=== PATIENT | female | born 1985 | race Two or more races ===

== ENCOUNTER 2024-03-28 14:47 | Outpatient (AMB) | payer OTHER, SELFPAY ==
--- NOTE | 2024-03-28 14:50 | A.OFFPC_ITS ---
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 It has been over 10 years since she had a primary care provider. 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 The patient was seen at [facility] on 02/01/2024 for left flank pain. She was diagnosed with a 4 mm left renal stone. She was discharged, and she believes it past because her pain resolved. She denies hematuria. No prior episodes. She had asthma diagnosed in childhood. She only has symptoms now if she is around cats. She does not have a rescue inhaler. She smokes 2-3 packs of cigarettes per week. She is not sedentary. She is considered quitting, but she does not want to take medications because she is concerned about the side effects. She is thinking about using patches, but she is not prepared to do this yet. Denies family history of breast cancer and colon cancer. ROS: Constitutional: No unexplained weight loss, fever, chills, fatigue or night sweats. Respiratory: No shortness of breath, cough or sputum production. Genitourinary: No dysuria, hematuria, urinary frequency. Psychiatric: No depression or anxiety. No SI/HI. Physical exam: Respiratory: Clear to auscultation. Cardiovascular: S1 S2 regular. No murmurs Psychiatric: Normal mood and affect [facility] Medical History (Updated 03/28/24 @ 15:44 by DORCAS Barr) Mild intermittent asthma Screening for cardiovascular condition Kidney stones Asthma Surgical History No pertinent past surgical history Family History Mother Substance abuse Cancer Hypertension High cholesterol Social History (Updated 03/28/24 @ 14:55 by Sheldon Jain MA) Household Members: Other Household Members Other:: roomates Both parents involved: No Caregiver staying overnight: No Housing: House Are you a primary transitional care manager to a significant other at home: No Do you presently have visiting nurse or other home services: No 75 years or older and lives alone: No Alcohol intake: never Patient Tobacco Use Status: Current everyday Tobacco user Cigarettes Per Day: 7 Years Smoked: 20 e-Cigarette/Vaping Use: Never Used Second Hand Smoke Exposure: No service: No Current occupational status: employed 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 1. Little interest or pleasure in doing things: not at all 2. Feeling down, depressed, or hopeless: not at all 3. Trouble falling or staying asleep, or sleeping too much: not at all 4. Feeling tired or having little energy: not at all 5. Poor appetite or overeating: not at all 6. Feeling bad about yourself - or that you are a failure or have let yourself or your family down: not at all 7. Trouble concentrating on things, such as reading the newspaper or watching television: not at all 8. Moving or speaking so slowly that other people could have noticed. Or the opposite - being so fidgety or restless that you have been moving around a lot more than usual: not at all 9. Thoughts that you would be better off or of hurting yourself in some way: not at all Total score: 0 07479 - PHQ-9 Billing: Yes Source: Developed by Drs. Chucky Morales, Elke Ledbetter, Catalino William and colleagues, with an educational jason from [employer] Thrive Questionnaire Date Thrive assessed: 03/28/24 I am a: Patient What is your living situation today?: I have a steady place to live Within the past 12 months, did the food you bought not last and you didn't have the money to get more?: Sometimes True Within the past 12 months, did you worry whether your food would run out before you got money to buy more?: Sometimes True Do you have trouble paying for medicines?: No Do you have trouble getting transportation to medical appointments?: No Do you have trouble paying your heating and electricity bill?: No Do you have trouble taking care of your child, family member or friend?: No Do you have trouble with day-to-day activities such as bathing, preparing meals, shopping, managing finances, etc.?: No Are you currently unemployed and looking for a job?: No Are you interested in more education?: Yes Please select the resources that you would like help with: Food and Utilities Currently or been in a relationship where the following occur: No concerns reported THRIVE Score: 2 AUDIT C Alcohol Use Questionnaire (AUDIT-C) 1. How often do you have a drink containing alcohol?: Never 3. How often do you have six or more drinks on one occasion?: Never Total Score: 0 JAC-7 AMB Questionnaire JAC-7 Date JAC - 7 assessed: 03/28/24 Feeling nervous, anxious, or on edge: 0 = Not at all Not being able to stop or control worryin = Not at all Worrying too much about different things: 0 = Not at all Trouble relaxin = Not at all Being so restless that it is hard to sit still: 0 = Not at all Becoming easily annoyed or irritable: 0 = Not at all Feeling afraid as if something awful might happen: 0 = Not at all Total JAC-7 score (0-4 normal; 5-9 mild; 10-14 moderate; 15-21 severe): 0 Source: Developed by Drs. Chucky Morales, Elke Ledbetter, Catalino William and colleagues, with an educational jason from [employer]. JAC-7 Assessment Billing JAC-7 Assessment Tool: JAC-7 Assessment 57050 Physical exam (Primary Care) Vital Signs: Last Vital Signs Pulse 75 03/28/24 14:58 Resp 12 03/28/24 14:58 BP 115/66 03/28/24 14:58 Pulse Ox 98 03/28/24 14:58 Oxygen Delivery Method Room Air 03/28/24 14:58 BMI result Body Mass Index 25.6 Tobacco/Smoking Status: Tobacco use Status Tobacco use date assessed 03/28/24 03/28/24 14:59 Patient Tobacco Use Status Current everyday Tobacco 03/28/24 14:59 e-Cigarette/Vaping Use Never Used 03/28/24 14:59 PHQ-9: PHQ-9 Score PHQ-9: Total score 0 03/28/24 14:59 Thrive Assessment: Date of Thrive Assessment Date Thrive assessed 03/28/24 03/28/24 14:59 Currently or been in a relationship where the following occur: No concerns reported Coding Level of Care Code New Pt Level 4 (66118) Complex EM visit Add On G2211 Diagnoses Kidney stones N20.0 Screening for cardiovascular condition Z13.6 Mild intermittent asthma J45.20 Additional Codes JAC-7 Assessment Billing - JAC-7 Assessment Tool: JAC-7 Assessment 75102 ([id number]) PHQ-9 - 56863 - PHQ-9 Billing: Yes ([id number]) Assessment & Plan Assessment & Plan (1) Kidney stones: Code(s): N20.0 - Calculus of kidney Category: Medical Plan: Stay well hydrated. We will check an ultrasound, and if there are any stone she will be referred to Urology. (2) Screening for cardiovascular condition: Code(s): Z13.6 - Encounter for screening for cardiovascular disorders Category: Medical (3) Mild intermittent asthma: Code(s): J45.20 - Mild intermittent asthma, uncomplicated Category: Medical Plan: Albuterol 2 puffs every 4 hours as needed for coughing, wheezing or shortness of breath. Recommended taking this 15 minutes prior to exposure to cats and to take Claritin or Radha at least 2 hours before exposure. Plan She will return for fasting labs. Agreeable to screening for STIs including HIV testing. She will return for a physical exam. Referred to Gynecology for annual exam. Influenza and Tdap vaccine given today. Orders: Orders Lipid Panel Today E78.5 - Hyperlipidemia, unspecified, N20.0 - Calculus of kidney, Z13.6 - Encounter for screening for cardiovascular disorders Hepatitis C Antibody Today N20.0 - Calculus of kidney, Z13.6 - Encounter for screening for cardiovascular disorders, Z20.2 - Contact with and (suspected) exposure to infections with a predominantly sexual mode of transmission Syphilis Screen Today N20.0 - Calculus of kidney, Z13.6 - Encounter for screening for cardiovascular disorders, Z20.2 - Contact with and (suspected) exposure to infections with a predominantly sexual mode of transmission Influenza [id number] Immunization Today Z23 - Encounter for immunization Comprehensive Met. Panel Today N20.0 - Calculus of kidney, Z13.6 - Encounter for screening for cardiovascular disorders HIV Ab/Ag Today N20.0 - Calculus of kidney, Z13.6 - Encounter for screening for cardiovascular disorders, Z20.2 - Contact with and (suspected) exposure to infections with a predominantly sexual mode of transmission CT NG by PCR Today N20.0 - Calculus of kidney, Z13.6 - Encounter for screening for cardiovascular disorders, Z20.2 - Contact with and (suspected) exposure to infections with a predominantly sexual mode of transmission TDaP Immunization Today Z23 - Encounter for immunization US retroperitoneal comp Today N20.0 - Calculus of kidney Referrals RELEASE AND TECHNICAL RECORDS CLERK Referral Z01.419 - Encounter for gynecological examination (general) (routine) without abnormal findings Medications: New Boostrix Tdap (diphth,pertus(acell),tetanus) 0.5 mL IM ONCE 0.5 mL 0RF NS Z23 - Encounter for immunization albuterol sulfate 90 mcg/actuation (Ventolin HFA) 2 puffs inhalation Q4-6H PRN 8.5 grams 0RF shortness of breath or wheezing Fluarix Triv [id number] (PF) (flu vacc [id number] 6mos up(PF)) 0.5 mL IM ONCE 0.5 mL 0RF NS Z23 - Encounter for immunization
[2024-03-28 14:58] VITALS: BP 115/66; PULSE 75; RESP 12; O2SAT 98; BMI 25.6
== END 2024-03-28 15:49 | disposition home or self-care (01) ==
PROVIDERS: PCP Physician Assistant Medical; Visit Provider Physician Assistant Medical
DX: N20.0 Calculus of kidney (principal); Z13.6 Encounter for screening for cardiovascular disorders; J45.20 Mild intermittent asthma, uncomplicated; Z23 Encounter for immunization

== ENCOUNTER → 2024-03-28 14:47 | Outpatient (BNVA) | payer OTHER, SELFPAY | PROVIDERS: PCP Physician Assistant Medical; Visit Provider Physician Assistant Medical | DX: N20.0 Calculus of kidney (principal); J45.20 Mild intermittent asthma, uncomplicated; F17.210 Nicotine dependence, cigarettes, uncomplicated; Z23 Encounter for immunization | CPT/HCPCS: 90471; 90472; 90656; 90715; 96127 ==

== ENCOUNTER 2024-05-07 08:52 | Outpatient (REF) | payer OTHER, SELFPAY ==
[2024-05-07 12:11] LABS: Alanine Aminotransferase 28 U/L (0-31); Albumin Level 4.4 g/dL (3.5-5.0); Alkaline Phosphatase 71 U/L (39-117); Anion Gap 16 (12-20); Aspartate Amino Transferase 24 U/L (5-31); Bilirubin Total 0.6 mg/dL (0.0-1.0); Blood Urea Nitrogen 11 mg/dL (9-16); Calcium 9.1 mg/dL (8.4-10.2); Carbon Dioxide 24 mmol/L (22-29); Chloride 104 mmol/L (96-108); Cholesterol 214 mg/dL (<200); Estimated Glomerular Filt Rate > 60; Glucose Random 93 mg/dL (60-115); HDL Cholesterol 67 mg/dL (>40); LDL Cholesterol Calculated 123 mg/dL (<100); Potassium 3.7 mmol/L (3.3-5.1); Sodium 140 mmol/L (135-145); Total Protein 7.4 g/dL (6.5-8.0); Triglycerides 123 mg/dL (<150)
[2024-05-07 12:14] LABS: HIV AB/AG Nonreactive (Nonreactive); HIV Num 1 0.05 S/CO (0.00-0.99); Syphilis Screen Nonreactive (Nonreactive); ~HepC Num1 0.13 S/CO (0.00-0.79); ~Hepatitis C Antibody Nonreactive (Nonreactive)
== END 2024-05-07 08:53 | disposition home or self-care (01) ==
LOC: HO.WFDLDS 08:52
PROVIDERS: Visit Provider Physician Assistant Medical
DX: N20.0 Calculus of kidney (principal); E78.5 Hyperlipidemia, unspecified; Z13.6 Encounter for screening for cardiovascular disorders; Z20.2 Contact with and (suspected) exposure to infections with a predominantly sexual mode of transmission
CPT/HCPCS: 36415; 80053; 80061; 86780; 86803; 87389

== ENCOUNTER 2024-05-23 11:51 | Outpatient (AMB) | payer OTHER, SELFPAY ==
--- NOTE | 2024-05-23 11:55 | A.OFFPC_ITS ---
Vital Signs 05/23/24 11:57 Height 5 ft 2 in Weight 143 lb 4 oz BMI 26.2 BP 115/68 Blood Pressure Location Lt brachial Position Sitting Respiration 12 Pulse 71 Pulse Source Pulse Oximeter Temp 97.1 F Temp Source Oral Pulse Oximetry (%) 98 Oxygen Delivery Method Room Air Intake Visit Reasons: annual physical exam Intake Note: annual physical Billing Checker Required: No Allergies No Known Allergies Allergy (Verified 05/23/24 11:56) Tobacco use date assessed: 05/23/24 Dental Screening Dental Screen Date: 05/23/24 Did you have a dental visit in the last 12 months?: Yes Did you have a dental problem in the last 6 months where you did not have access to dental care?: No Was dental information given to patient?: Patient has dentist HPI HPI Comments History of Present Illness Details This is a 39-year-old female presenting for a physical exam. 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 She received the flu vaccine and Tdap vaccine at her most recent visit. We discussed it pneumonia vaccine and rabies vaccine due to her line of work and history of asthma. She is going to check with her insurance about coverage. The patient was seen at [facility] on 02/01/2024 for left flank pain. She was diagnosed with a 4 mm left renal stone. She was discharged, and when she saw me her symptoms resolved, and the stone was believed to have pas sed. Renal function tests on 05/07/2024 were normal. She had an ultrasound done at [facility] on 04/17/2024 which showed 2 tiny bright reflectors at the left UVJ suspicious for nonobstructing calculi. She denies flank pain, urinary frequency, hematuria, fevers or chills. We reviewed her additional lab tests that were normal on 05/07/2024. She had asthma diagnosed in childhood. She only has symptoms now if she is around cats. She has a prescription for a rescue inhaler. She smokes 2-3 packs of cigarettes per week. She is not sedentary. She is considered quitting, but she does not want to take medications because she is concerned about the side effects. She is thinking about using patches, but she is not prepared to do this yet. Denies family history of breast cancer and colon cancer. Her mother has skin cancer. She is referred to Dermatology for a skin exam. She sees NAVAL ENGINEER for her annual this Monday. She endorses a history of eczema. Currently has a patch on her left ear and right elbow. She is using [id number] emollient which is not clearing the flare. ROS: Constitutional: No unexplained weight loss, fever, chills, fatigue or night sweats. Eyes: No vision changes, blurry vision, double vision, eye pain, eye redness, eye discharge. ENT: No hearing loss, sneezing, congestion, runny nose or sore throat. Respiratory: No shortness of breath, cough or sputum production. Cardiovascular: No chest pain, chest pressure or chest discomfort. No palpitations or pedal edema. Gastrointestinal: No anorexia, nausea, vomiting or diarrhea. No abdominal pain or blood in stool. Genitourinary: No dysuria, hematuria, urinary frequency. Neurologic: No headache, dizziness, syncope, unilateral weakness, ataxia, numbness or tingling in the extremities. Musculoskeletal: No muscle pain, back pain, joint pain or swelling. Hematologic/Lymphatics: No bleeding or bruising. No painful lymph nodes. Skin: see HPI Endocrine: No cold or heat intolerance. No polyuria or polydipsia. Psychiatric: No depression or anxiety. No SI/HI. Physical exam: Constitutional: Alert, in no distress. Head: Normocephalic. Eyes: Pupils are equal, round and reactive to light. Extraocular muscles intact. Ear, Nose and Throat: Canals clear. TMs normal. Normal nasal mucosa. No nasal discharge. No oral lesions. Neck: Supple, Full range of motion. No lymphadenopathy. No palpable thyroid masses. Respiratory: Clear to auscultation. Cardiovascular: S1 S2 regular. No murmurs. No carotid bruits. Gastrointestinal: Abdomen soft, non-tender, non-distended. Normal bowel sounds. No palpable masses. Genitourinary: No costovertebral angle tenderness. Neurologic: No focal neurological deficits. Symmetric patellar reflexes. Moves all extremities spontaneously. Sensation intact bilaterally. Skin: Erythematous dry patch on and behind the left ear and on the right elbow. Musculoskeletal: No gross deformities. Normal range of motion. Extremities: Warm and well perfused. No clubbing, cyanosis or edema. 3+ peripheral pulses bilaterally. Psychiatric: Normal mood and affect [facility] Medical History (Updated 05/24/24 @ 08:41 by DORCAS Barr) Eczema Routine physical examination Mild intermittent asthma Screening for cardiovascular condition Kidney stones Asthma Surgical History No pertinent past surgical history Family History Mother Substance abuse Cancer Hypertension High cholesterol Social History (Updated 03/28/24 @ 14:55 by Sheldon Jain MA) Household Members: Other Household Members Other:: roomates Both parents involved: No Caregiver staying overnight: No Housing: House Are you a primary intensive care unit nurse to a significant other at home: No Do you presently have visiting nurse or other home services: No 75 years or older and lives alone: No Alcohol intake: never Patient Tobacco Use Status: Current everyday Tobacco user Cigarettes Per Day: 7 Years Smoked: 20 e-Cigarette/Vaping Use: Never Used Second Hand Smoke Exposure: No service: No Current occupational status: employed 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 1. Little interest or pleasure in doing things: not at all 2. Feeling down, depressed, or hopeless: not at all 3. Trouble falling or staying asleep, or sleeping too much: not at all 4. Feeling tired or having little energy: not at all 5. Poor appetite or overeating: not at all 6. Feeling bad about yourself - or that you are a failure or have let yourself or your family down: not at all 7. Trouble concentrating on things, such as reading the newspaper or watching television: not at all 8. Moving or speaking so slowly that other people could have noticed. Or the opposite - being so fidgety or restless that you have been moving around a lot more than usual: not at all 9. Thoughts that you would be better off or of hurting yourself in some way: not at all Total score: 0 69237 - PHQ-9 Billing: Yes Source: Developed by Drs. Chucky Morales, Elke Ledbetter, Catalino William and colleagues, with an educational jason from [employer]. Thrive Questionnaire Date Thrive assessed: 05/23/24 I am a: Patient What is your living situation today?: I have a steady place to live Within the past 12 months, did the food you bought not last and you didn't have the money to get more?: Never true Within the past 12 months, did you worry whether your food would run out before you got money to buy more?: Never true Do you have trouble paying for medicines?: No Do you have trouble getting transportation to medical appointments?: No Do you have trouble paying your heating and electricity bill?: No Do you have trouble taking care of your child, family member or friend?: No Do you have trouble with day-to-day activities such as bathing, preparing meals, shopping, managing finances, etc.?: No Are you currently unemployed and looking for a job?: No Are you interested in more education?: No Please select the resources that you would like help with: None Currently or been in a relationship where the following occur: No concerns reported THRIVE Score: 0 AUDIT C Alcohol Use Questionnaire (AUDIT-C) 1. How often do you have a drink containing alcohol?: Monthly or less 2. How many drinks containing alcohol do you have on a typical day when you are drinking?: 1 or 2 3. How often do you have six or more drinks on one occasion?: Never Total Score: 1 JAC-7 AMB Questionnaire JAC-7 Date JAC - 7 assessed: 05/23/24 Feeling nervous, anxious, or on edge: 0 = Not at all Not being able to stop or control worryin = Not at all Worrying too much about different things: 0 = Not at all Trouble relaxin = Not at all Being so restless that it is hard to sit still: 0 = Not at all Becoming easily annoyed or irritable: 0 = Not at all Feeling afraid as if something awful might happen: 0 = Not at all Total JAC-7 score (0-4 normal; 5-9 mild; 10-14 moderate; 15-21 severe): 0 Source: Developed by Drs. Chucky Morales, Elke Ledbetter, Catalino William and colleagues, with an educational jason from [employer] JAC-7 Assessment Billing JAC-7 Assessment Tool: JAC-7 Assessment 02851 Physical exam (Primary Care) Vital Signs: Last Vital Signs Temp 97.1 F 02/20/25 11:57 Pulse 71 05/23/24 11:57 Resp 12 05/23/24 11:57 BP 115/68 05/23/24 11:57 Pulse Ox 98 05/23/24 11:57 Oxygen Delivery Method Room Air 05/23/24 11:57 BMI result Body Mass Index 26.2 Tobacco/Smoking Status: Tobacco use Status Tobacco use date assessed 05/23/24 05/23/24 11:59 Patient Tobacco Use Status Current everyday Tobacco 05/23/24 11:59 e-Cigarette/Vaping Use Never Used 05/23/24 11:59 PHQ-9: PHQ-9 Score PHQ-9: Total score 0 05/23/24 12:26 Thrive Assessment: Date of Thrive Assessment Date Thrive assessed 05/23/24 05/23/24 11:59 Currently or been in a relationship where the following occur: No concerns reported Coding Level of Care Code Est Pt Prev Care 18-39y(34718) Diagnoses Routine physical examination Z00.00 Eczema L30.9 Kidney stones N20.0 Additional Codes JAC-7 Assessment Billing - JAC-7 Assessment Tool: JAC-7 Assessment 70711 ([id number]) PHQ-9 - 68139 - PHQ-9 Billing: Yes ([id number]) Assessment & Plan Assessment & Plan (1) Routine physical examination: Code(s): Z00.00 - Encounter for general adult medical examination without abnormal findings Category: Medical Plan: Patient is seen today for a routine physical. As part of this visit we reviewed the following issues, which are considered and essential part of preventative health in this age group: - Breast Cancer screening - Annual Lobby Attendant exam - Blood pressure screening annually - Cholesterol screening - Osteoporosis prevention including calcium/vitamin D intake, weight bearing exercise & smoking cessation - Nutritional and exercise counseling - Counseling of injury prevention including fire prevention, smoke alarms and seat belt usage - Screening for depression - Prevention of and/or testing for infectious diseases - Education about skin cancer - Recommendations about immunizations - Recommendation of an eye exam - Screening for substance abuse (2) Eczema: Code(s): L30.9 - Dermatitis, unspecified Category: Medical Plan: Treat with topical hydrocortisone 2-3 times daily for 7 days. Side effects of topical steroids reviewed with the patient. Do not use for more than 7 days out of a month. Apply topical emollient 2-3 times daily. Refer to dermatology. (3) Kidney stones: Code(s): N20.0 - Calculus of kidney Category: Medical Plan: Refer to Urology. Stay well hydrated. Warning signs warranting ER evaluation reviewed. Plan Annual physical due in 1 year. Orders: Referrals Urology Referral N20.0 - Calculus of kidney Dermatology Referral L30.9 - Dermatitis, unspecified, Z12.83 - Encounter for screening for malignant neoplasm of skin Medications: New hydrocortisone 1% (Anti-Itch (hydrocortisone)) 1 appl topical TID 7 days PRN 28.35 grams 3RF skin irritation
[2024-05-23 11:57] VITALS: BP 115/68; PULSE 71; RESP 12; TEMP 36.2; O2SAT 98; BMI 26.2
== END 2024-05-23 12:49 | disposition home or self-care (01) ==
PROVIDERS: PCP Physician Assistant Medical; Visit Provider Physician Assistant Medical
DX: Z00.00 Encounter for general adult medical examination without abnormal findings (principal); L30.9 Dermatitis, unspecified; N20.0 Calculus of kidney

== ENCOUNTER → 2024-05-23 11:51 | Outpatient (BNVA) | payer OTHER, SELFPAY | PROVIDERS: PCP Physician Assistant Medical; Visit Provider Physician Assistant Medical | DX: Z00.00 Encounter for general adult medical examination without abnormal findings (principal); L30.9 Dermatitis, unspecified; N20.0 Calculus of kidney | CPT/HCPCS: 96127 ==